=== PATIENT | female | born 1955 | race Caucasian/White ===

== ENCOUNTER 2019-01-25 12:32 | Emergency (ER) | payer MEDICARE ==
[~2019-01-25] VITALS: Ht 152.4 cm; Wt 44.9 kg
[~2019-01-25 12:32] MED LIST: CYMBALTA60 MG PO; DOXEPIN 50MG CA50 M1 GT; KLONOPIN1 MG PO; LEXAPRO20 MG PO; RISPERDAL0.5 MG PO
[2019-01-25] MEDS ORDERED: NEURONTIN600 MG PO (12:40)
[2019-01-25] MEDS ORDERED: SIMVASTATIN10 MG PO (12:41)
[2019-01-25] MEDS ORDERED: SEROQUEL 25 MG25 M1 PO (12:41)
[2019-01-25 13:28] LABS: ABSOLUTE BASOPHILS 0.1 thou/uL (0.0-0.2); ABSOLUTE LYMPHOCYTES 3.3 thou/uL (0.8-5.3); ABSOLUTE MONOCYTES 0.6 thou/uL (0.0-1.2); ABSOLUTE NEUTROPHILS 5.4 thou/uL (1.6-8.1); BASOPHILS 0.9 %; EOSINOPHILS 0.5 %; HEMATOCRIT 46.2 % (37.0-47.0); HEMOGLOBIN 15.8 gm/dL (12.0-15.0); LYMPHOCYTES 34.7 %; MCH 30.8 pg (26.0-34.0); MCHC 34.2 g/dL (28.0-37.0); MCV 90.2 fL (80.0-100.0); MONOCYTES 6.7 %; MPV 8.5 fl. (7.2-11.1); NUCLEATED RBCS 0 /100WBC; PLATELET COUNT* 304 thou/uL (150-400); POLYS 57.2 %; RBC 5.13 mil/uL (4.20-5.00); RDW-CV 14.1 % (10.5-14.5); WBC 9.5 thou/uL (4.0-11.0)
[2019-01-25 13:39] LABS: ANION GAP 10 mmol/L (7-16); BUN 11 mg/dL (7-18); CHLORIDE 103 mmol/L (98-107); CO2 26 mmol/L (21-32); CREATININE 0.6 mg/dL (0.6-1.3); GLUCOSE 100 mg/dL (70-99); INR 0.9; POTASSIUM 3.4 mmol/L (3.5-5.1); PROTIME 9.4 Seconds (9.20-11.50); SODIUM 139 mmol/L (136-145)
[2019-01-25 13:47] LABS: ALBUMIN 3.4 g/dL (3.4-5.0); ALKALINE PHOSPHATASE 126 U/L (46-116); LIPASE 234 U/L (73-393); NT-PRO BRAIN NAT PEPTIDE 139 pg/mL (<300); SGOT 15 U/L (15-37); SGPT 19 U/L (30-65); TOTAL BILIRUBIN 0.5 mg/dL (<0.1-1.0); TOTAL PROTEIN 7.4 g/dL (6.4-8.2); TROPONIN-I LEVEL <0.06 ng/mL (<0.06)
[2019-01-25] MEDS ORDERED: AZITHROMYCIN 2250 MG PO (13:58)
[2019-01-25] MEDS ORDERED: MEDROL DOSPAK21 TA1 PO (13:58)
[2019-01-25] MEDS ORDERED: ATIVAN1 MG PO (13:58)
[2019-01-25 14:33] VITALS: BP 106/75
--- NOTE | 2019-01-25 15:01 | EKG ---
[place] [address] ELECTROCARDIOGRAM REPORT Name: SANKET MENDEZ Betty Room: [facility]#: [id number] Admission: 01/25/19 Attend Phys: Discharge: 01/25/19 Date of : 53 Report #: [id number] THIS REPORT FOR: //name// [facility] ED Test Date: 2019-01-25 Test Time: 12:37:12 Pat Name: SANKET MENDEZ Department: Room: Gender: F Manager Reimbursement: ANTONIO : 1955 Requested By: Otoniel Cardona Order Number: [id number] MD: Markie Couch Measurements Intervals [place] Rate: 91 P: 0 CT: 122 QRS: 60 QRSD: 78 T: 47 QT: 354 QTc: 436 Interpretive Statements Sinus rhythm Baseline wander in lead(s) V2 Compared to ECG 11/17/2016 09:46:43 no change Electronically Signed On 01-25-2019 15:01:35 CDT by Markie Couch [email or web address] <ELECTRONICALLY SIGNED> By: Markie Couch MD, [facility] 01/25/19 1501 1237 1237 Markie Couch MD, FACC /EPI
== END 2019-01-25 14:33 | disposition home or self-care (01) ==
LOC: M.ERS 12:32
PROVIDERS: Emergency Medicine
DX: J40 Bronchitis, not specified as acute or chronic (principal); F41.9 Anxiety disorder, unspecified; R07.89 Other chest pain; F32.9 Major depressive disorder, single episode, unspecified; E78.00 Pure hypercholesterolemia, unspecified; J44.9 Chronic obstructive pulmonary disease, unspecified; F17.210 Nicotine dependence, cigarettes, uncomplicated